=== PATIENT | male | born 1940 | race Caucasian/White ===

== ENCOUNTER 2019-08-13 04:47 | Inpatient (IN) ==
--- NOTE | 2019-07-18 08:49 | PAT Medication Instructions ---
Medication Instructions Date of Service July 18, 2019 Home Medications amlodipine 5 mg PO QAM 07/08/19 [History Confirmed 07/08/19] ascorbic acid (vitamin C) [Vitamin C] 500 mg PO BID 07/08/19 [History Confirmed 07/08/19] aspirin 81 mg PO QPM 07/08/19 [History Confirmed 07/08/19] carvedilol 6.25 mg PO BID 07/08/19 [History Confirmed 07/08/19] clopidogrel 75 mg PO QAM 07/08/19 [History Confirmed 07/08/19] levothyroxine 25 mcg PO QAM 07/08/19 [History Confirmed 07/08/19] lisinopril 5 mg PO QPM 07/08/19 [History Confirmed 07/08/19] auhskgov-vzx-nqnxa-vit K-lycop [Men's 50 Plus Multivitamin] 1 tab PO QAM omega 9-iuh-fpj-fish oil [Fish Oil] 1 cap PO QAM 07/08/19 [History Confirmed 07/08/19] simvastatin 20 mg PO PM 07/08/19 [History Confirmed 07/08/19] ASK your prescriber and surgeon clopidogrel 75 mg PO QAM (in order for spinal anesthesia, clopidogrel/plavix needs to be stopped 7 days before surgery. Please check if okay with doctor that prescribes this to you) STOP taking 2 weeks before surgery (or as soon as possible if surgery is within 2 weeks) omega 6-ytc-tgo-fish oil [Fish Oil] 1 cap PO QAM 07/08/19 [History Confirmed 07/08/19] DO NOT take the morning of surgery ascorbic acid (vitamin C) [Vitamin C] 500 mg PO BID 07/08/19 [History Confirmed 07/08/19] aozzvfzx-ysn-salvp-vit K-lycop [Men's 50 Plus Multivitamin] 1 tab PO QAM Take morning of surgery With a small sip of water, OTHERWISE NOTHING TO EAT OR DRINK AFTER MIDNIGHT: amlodipine 5 mg PO QAM 07/08/19 [History Confirmed 07/08/19] carvedilol 6.25 mg PO BID 07/08/19 [History Confirmed 07/08/19] levothyroxine 25 mcg PO QAM 07/08/19 [History Confirmed 07/08/19] Take evening before surgery carvedilol 6.25 mg PO BID 07/08/19 [History Confirmed 07/08/19] simvastatin 20 mg PO PM 07/08/19 [History Confirmed 07/08/19] Other Notes If you have any questions please call us at [phone] or [phone] or [phone] or [phone]
--- NOTE | 2019-07-21 08:58 | Anesthesiology Consultation ---
Date of Service July 21, 2019 Assessment & Plan (1) Encounter for pre-operative examination: - Awaiting review preop testing (labs, EKG, CXR). - Recent [facility] hospitalization for heart failure (SOB resolved with addition of diuretics). Patient seeing cardiology (Dr. Alves) and PCP (Dr. Dennis) prior to surgery- awaiting office visit notes. - ASA instructions: ASA okay to continue perioperatively per surgeon. Plavix instructions: patient made aware that in order for spinal anesthesia, Plavix needs to be held 7 days prior to surgery. Patient voiced understanding/will check if okay with prescriber/circular saw operator. Chart Review Chart Review: Patient seen in Pre Admission Testing Teaching & Discussion Pre-Anesthesia Teaching/Discussion Notes: Instructed NPO after midnight before surgery,except medications with 15 cc of water. Medication instructions provided according to the PAT guidelines. History Surgery Operation Date: 08/13/19 09:05 Proposed Procedures p Right Total Hip Replacement - Davonte Knutson MD Height/Weight Height: 5 ft 5.5 in Weight: 79.8 kg Allergies Allergy/AdvReac Type Severity Reaction Status Date / Time No Known Allergies Allergy Verified 07/08/19 13:47 Medications Home Medications Medication Instructions Recorded Confirmed Last Taken amlodipine 5 mg PO QAM PRN 07/08/19 07/08/19 Unknown ascorbic acid (vitamin C) [Vitamin 500 mg PO BID 07/08/19 07/08/19 Unknown C] aspirin 81 mg PO QPM 07/08/19 07/08/19 Unknown carvedilol 6.25 mg PO BID 07/08/19 07/08/19 Unknown clopidogrel 75 mg PO QAM 07/08/19 07/08/19 Unknown levothyroxine 25 mcg PO QAM 07/08/19 07/08/19 Unknown lisinopril 5 mg PO QPM 07/08/19 07/08/19 Unknown iqbgazrr-bvh-olgxb-vit K-lycop 1 tab PO QAM 07/08/19 07/08/19 Unknown [Men's 50 Plus Multivitamin] omega 0-mud-cjy-fish oil [Fish Oil] 1 cap PO QAM 07/08/19 07/08/19 Unknown simvastatin 20 mg PO PM 07/08/19 07/08/19 Unknown bumetanide 1 mg PO DAILY 07/21/19 07/21/19 Unknown spironolactone 25 mg PO DAILY 07/21/19 07/21/19 Unknown Past Medical History Medical History CAD (coronary artery disease) s/p CABG x 3 (2011), stent x 1 (2009) GERD (gastroesophageal reflux disease) controlled Hearing deficit Hyperlipidemia Hypertension Hypothyroidism Myocardial Infarction 2011 Osteoarthritis Skin cancer Exercise / Class Metabolic Activity III < 4 Walking/Shop/Light housework (no chest pain with daily activities) Past Family History Family History Uncle Family history of diabetes mellitus Past Surgical History Surgical History History of cardiac cath 2009= STENT X 1 History of carpal tunnel release RT/LEFT History of cataract surgery History of colonoscopy History of coronary artery bypass graft x3 (2011) History of esophagogastroduodenoscopy (EGD) History of tooth extraction S/P removal of metal from eye Past Anesthesia History No Hx of Anesthesia Complications and No Family Hx of Anesthesia Complications History of PONV No Hx of PONV and No Hx of Motion Sickness Social History Smoking Status: Former smoker tobacco type: cigarettes Do You Dip or Chew Tobacco: No Smoking End Date: QUIT AT AGE 28 Hx Alcohol Use: No Hx Substance Use: No substance use type: does not use Review of Systems Patient denies chest pain, shortness of breath, dyspnea on exertion, joint pain, reflux, cough, wheezing, palpitations. Physical Exam Vital Signs VITALS BP 112/66 P 66 TEMP 97.9 SP02 94%RA RESP 16 PHYSICAL Full neck and c-spine range of motion. Full TMJ range of motion. TMD 3 finger breaths Mallampati Score 2 Dentition: partials on upper/lower Lungs: clear throughout to auscultation Cardiac: regular rate and rhythm, no murmurs noted Spine: normal Carotid arteries: negative bruit Extremities: no edema Testing Echocardiogram Date: 11/07/18 EF 35%. Moderate global HK. Grade I DD. Thickened MV with mitral annular calc ification. Mild to moderate MR. Mild CO. RVSP 27mmhg. Mildly dilated ascending aorta (3.9cm). cLVH. Cardiac Catheterization Date: 02/04/18 Angiographically severe Left main and RCA occlusion. Patient grafts to LV branch of RCA and OM. EF 35%. Given present coronary anatomy patient should be managed medically as per the guidelines directed medical therapy/risk modification.
--- NOTE | 2019-07-21 10:30 | XRay Report ---
XR chest Pre-admission PA/Lat CLINICAL HISTORY: pat preoperative evaluation COMPARISON STUDY: No previous studies for comparison. FINDINGS: Prior median sternotomy. Tortuosity of the thoracic aorta. Scarring left perihilar region most likely postoperative. Lungs are considered clear. IMPRESSION: Chronic and postoperative change. No acute process. The above report was generated using voice recognition software. It may contain grammatical, syntax or spelling errors. Electronically signed by: Kadeem Caballero M.D. 07/21/2019 10:29 AM
[2019-07-21 10:38] LABS: BUN Creatinine Ratio 33.6 (10-20); Creatinine Clr Calc Pharmacy 35.6 ml/min; Est GFR (African American) 46.1; Est GFR (Non-African American) 39.8; Potassium 4.7 mmol/L (3.5-5.1)
[2019-07-21 10:40] LABS: Basophils # (auto) 0.03 K/uL (0-0.2); Basophils % (auto) 0.3 %; Eosinophils # (auto) 0.22 K/uL (0-0.5); Eosinophils % (auto) 2.3 %; Hematocrit (blood only) 45.3 % (42-52); Hemoglobin 15.7 g/dL (14.0-18.0); Immature Granulocytes # (auto) 0.02 K/uL (0.00-0.02); Immature Granulocytes % (auto) 0.2 %; Lymphocytes # (auto) 1.74 K/uL (1.2-3.4); Lymphocytes % (auto) 18.5 %; Mean Corpuscular Hemoglobin 32.8 pg (25-34); Mean Corpuscular Hgb Conc 34.7 g/dL (32-36); Mean Corpuscular Volume 94.8 fL (80-100); Mean Platelet Volume 10.9 fL (7.4-10.4); Monocytes # (auto) 1.21 K/uL (0.11-0.59); Monocytes % (auto) 12.9 %; Neutrophils # (auto) 6.17 K/uL (1.4-6.5); Neutrophils % (auto) 65.8 %; Platelet Count 227 K/uL (130-400); RDW Coefficient of Variation 14.2 % (11.5-14.5); RDW Standard Deviation 49.1 fL (36.4-46.3); Red Blood Count 4.78 M/uL (4.7-6.1); White Blood Count 9.39 K/uL (4.8-10.8)
[2019-07-21 10:51] LABS: Partial Thromboplastin Time 27.7 Seconds (21.0-31.0); Prothrombin Time 10.3 Seconds (9.0-12.0)
--- NOTE | 2019-08-06 14:06 | History and Physical Report ---
DATE OF ADMISSION: 08/13/2019 CHIEF COMPLAINT: Right hip pain and discomfort. HISTORY OF PRESENT ILLNESS: The patient is an 79-year-old gentleman who presents for surgical treatment of his right hip. He has got several year history of right hip pain and discomfort that has gradually just gotten worse over time. He describes buttock pain, groin pain and thigh pain. The more he walks, the more it hurts. It is affecting his quality of life. He did say he has been seen by his design lead and given okay, risk for surgery. Denies any numbness. Some mild back pain. Of note, the patient does have a history of coronary artery disease in the past and had bypass surgery done in [place] in 2011. Currently, asymptomatic. PAST MEDICAL HISTORY: 1. Coronary artery disease status post bypass graft in 2011. 2. Hypertension. 3. Elevated cholesterol. 4. Hypothyroidism. 5. Mild obesity. 6. BPH. PAST SURGICAL HISTORY: Include triple bypass surgery in [place] in 02/29/2012. ALLERGIES: None. CURRENT MEDICINES: Include: 1. Carvedilol 6.25 mg twice a day. 2. Plavix 75 mg a day. 3. Lisinopril 5 mg in the evening. 4. Amlodipine 5 mg in the morning. 5. Simvastatin 20 mg at nighttime. 6. Levothyroxine 25 mcg at night. 7. Multivitamin. 8. Fish oil. 9. Vitamin C. 10. Low dose aspirin. SOCIAL HISTORY: An 79-year-old male. He is . He is from [place]. He does not smoke. FAMILY HISTORY: Noncontributory. REVIEW OF SYSTEMS: Significant for this cardiac history, but no current symptoms. He is on Plavix. Denies any chest pain or shortness of breath. No history of DVT or PE. No known bleeding problems. PHYSICAL EXAMINATION: GENERAL: Shows a pleasant elderly male. Looks to be in reasonably good health. HEENT: Benign. NECK: Supple, no lymphadenopathy. LUNGS: Clear to auscultation. HEART: Regular rate and rhythm. ABDOMEN: Soft, nontender, nondistended. EXTREMITIES: Grossly neurovascularly intact except as follows: Examination of the right hip reveal patient walks with antalgic gait. He limps quite a bit on this right side. He has been 0.5 cm short on the right side compared to left. He has pain with any type of hip motion. He can internally rotate to about neutral. External rotation at 30 degrees. Negative straight leg raise. He is neurologically intact. X-RAYS: X-rays of the right hip were reviewed. Shows advanced right hip DJD. He has got complete loss of his joint space. He has cystic changes and flattening of the femoral head and cystic changes in the acetabulum. Bone density looks pretty good. ASSESSMENT: An 79-year-old male with some underlying cardiac disease with advanced right hip degenerative joint disease. He is significantly limited by his disease and he failed all conservative care. He would like to have his hip replaced. PLAN: We are going to take him to the operating room and do right total hip replacement. The risks and benefits of this procedure were explained to the patient including but not limited to DVT, PE, , infection, neurological injury, vascular injury, bleeding problem, pain, limited range of motion, stiffness, failure to relieve symptoms, incomplete relief of symptoms, need for further surgery in future, fracture, leg length inequality, nerve palsy, etc. The patient understands and desires to proceed. Informed consent was obtained. I did talk to him about holding his Plavix a week before surgery and taking the carvedilol the morning of surgery. He is planning to be discharged to home using [facility] home health program. His will assist in his care. STEPAN
[2019-08-13] MEDS ORDERED: METOCLOPRAMIDE HCL 10 MG TABLET PO SCH (06:00)
[2019-08-13] MEDS ORDERED: CEFAZOLIN 2000MG 2,000 MG/15 ML SYR IV SCH (06:00)
[2019-08-13] MEDS ORDERED: TRANEXAMIC ACID 1,000 MG **IV Pre-op IV SCH (06:00)
[2019-08-13] MEDS ORDERED: FAMOTIDINE 20 MG TAB PO SCH (06:00)
[2019-08-13] MEDS ORDERED: GABAPENTIN 300 MG CAP PO SCH (06:00)
[2019-08-13] MEDS ORDERED: SODIUM CHLORIDE 0.9% 1,000 ML IV SCH (06:00)
[2019-08-13] MEDS ORDERED: LR 60ML/HR IV SCH (06:00)
[2019-08-13] MEDS ORDERED: ACETAMINOPHEN 500 MG TAB PO SCH (06:00)
[2019-08-13] MEDS ORDERED: BUPIVACAINE 0.5 % 5 MG/1 ML PF 10ML VIAL ONE (06:31)
[2019-08-13] MEDS ORDERED: BACITRACIN INJ 50,000 UNIT VIAL ONE (06:39)
[2019-08-13] MEDS ORDERED: BUPIVACAINE 0.5 % 5 MG/1 ML MPF 30ML VIAL ONE (06:40)
[2019-08-13] MEDS ORDERED: EPINEPHrine INJ 1 MG/ML AMP ONE (06:40)
[2019-08-13] MEDS ORDERED: LIDOCAINE HCL 2% 2 ML VIAL/AMP(20MG/ML) INFIL ONE (06:43)
[2019-08-13] MEDS ORDERED: PROPOFOL IV EMULSION 10 MG/ML 20 ML VIAL IV ONE (06:43)
[2019-08-13] MEDS ORDERED: MIDAZOLAM HCL 1 MG/ML 2ML VIAL ONE (06:43)
[2019-08-13] MEDS ORDERED: MoRPHine SULFATE PF 1 MG/ML 10 ML AMP/VIAL ONE (06:43)
[2019-08-13] MEDS ORDERED: NALBUPHINE HCL INJ 10 MG/ML AMP IV PRN (06:47)
[2019-08-13] MEDS ORDERED: PROMETHAZINE HCL 6.25 MG in SODIUM CHLORIDE 0.9% 50 ML IV PRN (06:47)
[2019-08-13] MEDS ORDERED: DiphenhydrAMINE HCL 50 MG/ML VIAL IV PRN (06:47)
[2019-08-13] MEDS ORDERED: MoRPHine SULFATE 2 MG/ML CARP IV PRN (06:47)
[2019-08-13] MEDS ORDERED: MoRPHine SULFATE PF 1 MG/ML 10 ML AMP/VIAL INT SPINAL ONE (06:47)
[2019-08-13] MEDS ORDERED: NALOXONE HCL 0.4 MG/1 ML VIAL/CARP IV PRN ×2 (06:47→09:58)
[2019-08-13] MEDS ORDERED: LACTATED RINGER'S 500 ML IV PRN (06:47)
[2019-08-13] MEDS ORDERED: NALOXONE HCL 0.08 MG in SYRINGE 1.8 ML IV PRN (06:47)
[2019-08-13] MEDS ORDERED: NALOXONE HCL 1 MG in SODIUM CHLORIDE 0.9% 1000ML 1,000 ML IV PRN (06:47)
[2019-08-13] MEDS ORDERED: ONDANSETRON INJ 2 MG/ML 2 ML VIAL IV PRN (06:47)
[2019-08-13] MEDS ORDERED: ePHEDrine sulfate 50 MG/ML AMP IV PRN (06:47)
[2019-08-13] MEDS ORDERED: KETOROLAC 30 MG/ML VIAL IV PRN (06:47)
--- NOTE | 2019-08-13 06:57 | History & Physical Bridge Note ---
Date of Service August 13, 2019 History & Physical Bridge Note I have examined the patient, reviewed the History & Physical and in the interval since the performance of the History & Physical I have noted the following changes of clinical significance: no changes noted
[2019-08-13] MEDS ORDERED: NO NARCOTICS OR SEDATIVES SCH (07:00)
[2019-08-13] MEDS ORDERED: PHENYLEPHRINE 100MCG/ML 5ML SYR ONE (08:08)
[2019-08-13] MEDS ORDERED: ePHEDrine sulfate 50 MG/ML SYR ONE (08:08)
[2019-08-13] MEDS ORDERED: VASOPRESSIN 20 UNIT/ML VIAL ONE (08:08)
--- NOTE | 2019-08-13 08:35 | Post Operative Brief Note ---
PG Immediate Post Op with CF Date of Surgery August 13, 2019 Pre & Post Diagnosis Operation Date: 08/13/19 07:00 Pre-Op Diagnosis: Right Hip Advanced Degenerative Joint Disease Post-Op Diagnosis: Right Hip Advanced Degenerative Joint Disease + Chronic Hip Abductor Tear I identified the patient and participated in the time-out.: Yes Procedure Operation Date: 08/13/19 07:00 Actual Procedures p Right Total Hip Arthroplasty--Uncemented with Right Hip Abductor Repair(Right) - Davonte Knutson MD Surgeon Davonte Knutson MD Sap Abap Developer HARJINDER Calderon Estimated Blood Loss 250 Findings Consistent with Post-Op Diagnosis Fluids 1200 cc Specimens Specimen Description: A. Right Femoral Head Drains Martinez Catheter (A 16 Lao martinez catheter was inserted by QUEENIE Uribe, without difficulty, clear yellow urine obtained, output to be monitored by Anesthesia.) Anesthesia Type Spinal MAC Complications none Disposition Accompanied Patient To Recovery: Yes Disposition: Recovery Room
--- NOTE | 2019-08-13 08:57 | Operative Report ---
Post Operative Report Pre & Post Diagnosis Operation Date: 08/13/19 07:00 Pre-Op Diagnosis: Right Hip Advanced Degenerative Joint Disease Post-Op Diagnosis: Right Hip Advanced Degenerative Joint Disease + Chronic Hip Abductor Tear I identified the patient and participated in the time-out.: Yes Procedure Operation Date: 08/13/19 07:00 Actual Procedures p Right Total Hip Arthroplasty--Uncemented with Right Hip Abductor Repair(Right) - Davonte Knutson MD Surgeon Davonte Knutson MD Para Machine Operator Kvng, PAC Estimated Blood Loss 250 Findings Consistent with Post-Op Diagnosis Operative findings revealed advanced right hip DJD. He had grade 4 ubvm-cm-bxle disease of the femoral head and acetabulum. He had a chronic hip abductor tear. Particularly involving the anterior and superior hip abductors. Fluids 1200 cc Specimens Right femoral head sent for pathology. Drains None. Anesthesia Type Spinal MAC Complications none Disposition Disposition: Recovery Room Indications Patient is an 79-year-old gentleman is had a 7-year history of increasing right hip pain discomfort that gradually got worse over time despite conservative care. Really started to limit his activities and ability to maintain an active lifestyle. Got some underlying cardiac disease and was unable to be active as a result of his hip pain. He was medically optimized and desired to proceed with total hip arthroplasty. Description of Procedure Operative implants consisted of: 1. Biomet size 54 mm G7 acetabular shell. 2. Biomet size 54 mm outer diameter, 36 mm inner diameter highly cross-link polyethylene liner with a henderson placed inferior and posterior. 3. 6.5 cancellus acetabular screws 135 mm length and 125 mm length. 4. Hope hole eliminator. 5. Crowheart Corail size 9 KLA femoral stem. 6. +1.5/36 mm ceramic articular ball. Patient was taken to the operating room identified and placed on the operating table supine position. Contact there is probably padded. IV antibiotics were provided by the anesthesia team. Spinal anesthetic had been implemented holding area. Moulton catheter was placed in sterile fashion. Patient was then placed in the left lateral decubitus position. An axillary roll was placed. Stulberg hip positioner was used for positioning. Right hip and leg were then prepped and draped in usual sterile fashion. A posterior lateral approach of the right hip was then performed to a curvilinear incision centered over the greater trochanter but sharp lysis got through subcutaneous tissue down below the IT band gluteal fascia the IT band gluteal fascia then incised longitudinally in line with the skin incision. The underlying greater bursa was excised. The piriformis, external rotators, and posterior capsule were then released in the posterior aspect of the hip joint as a single layer. Great care was taken throughout the procedure to protect the sciatic nerve at all times. Hip was then internally rotated and dislocated. Femoral neck osteotomy cut was made with Final Cut about 5 mm above the lesser trochanter. Femoral head was removed and sent for pathology. The femur was retracted anteriorly. Attention drawn the acetabulum. The acetabular labrum was excised. The pulmonary fat was excised. Sequential reaming the acetabulum was then performed begin with size 45 and progressing up to 53. A 54 mm Biomet G7 acetabular shell was then placed in about 40 degrees lateral opening and 20 degrees of anteversion. It was fixed with two 6.5 cancellus acetabular screws. Trial liner was placed. Attention drawn the femur. New per the proximal femurs and with a cookie-cutter followed by canal finder. Then broached begin the size 8 and probably progressed to 9. We get pretty good fit it in 9. Calcar reamer was used smooth off the calcar. Then trialed the hip. The +5 articular ball was stable but just stiff particular in extension. We therefore used a +1.5 articular ball. Seem to re-create soft tissue tension appropriately. It was fully stable in full extension and external rotation and flexion to 90 degrees internal rotation to over 50 degrees. I did elect to place a line entered with a henderson inferior and posterior to maximize stability in flexion. All trial implants were removed. An apex hole eliminator was placed but highly cross-link polyethylene liner with a henderson placed inferior and posterior was then impacted in position. A Crowheart Corail size 9 KLA femoral stem was impacted in position. +1.5/36 mm articular ball was placed. Hip was located once again found to be stable. Attention turned toward closing. Patient had chronic avulsion of his hip abductors particularly anterior and posteriorly. I elected to repair these. I used the cautery stuff up the lateral and anterior aspect of the greater trochanter. A single Biomet juggernaut anchor was placed with a 2 sutures in it. I placed a 1 suture through the anterior hip abductors 1 through the superior. I then used a #2 Tycron sutures to repair some additional soft tissue defect. Attention then drawn toward closing. The IT band was then closed with #1 PDS suture running fashion the subcutaneous tissues closed 2 layers with a deep layer #1 Vicryl suture in a buried interrupted fashion the subcutaneous tissues with 2 Dexon suture in a buried interrupted fashion the skin was closed skin yolanda. Leg was then cleaned dried and sterile dressing was Xeroform, 4 x 4's, ABD pad, foam tape was applied. Patient transferred to the recovery room in stable condition. Patient tolerated procedure well and there were no complications. I attest to the content of the Intraoperative Record and any orders documented therein. Any exceptions are noted below.
--- NOTE | 2019-08-13 09:11 | XRay Report ---
XR hip 1V RT w pelvis CLINICAL HISTORY: Postoperative examination OSTEOARTHRITIS COMPARISON: Pelvis x-ray dated 06/16/2019 DISCUSSION: There are postsurgical changes of a total right hip arthroplasty. The acetabular and femo ral components appear well seated. Overlying skin yolanda are evident. There is gas present within th e soft tissues consistent with prior surgery. There is no dislocation. IMPRESSION: Postsurgical changes of a total right hip arthroplasty. No complicating features identifi ed. Electronically signed by: Lb Moncada M.D. 08/13/2019 9:09 AM
--- NOTE | 2019-08-13 09:29 | Anesthesiology Progress Note ---
Date of Service August 13, 2019 Anesthesia Post Procedure Vital Signs Vital Signs: Temp Pulse Pulse Resp BP Pulse Ox 08/13/19 09:25 36.3 C L 76 20 112/69 98 08/13/19 09:15 81 18 113/71 99 08/13/19 09:05 73 18 117/64 98 08/13/19 08:55 74 17 111/59 L 99 08/13/19 08:45 69 14 113/64 100 08/13/19 08:35 36.5 C 56 L 12 125/70 98 08/13/19 05:38 36.4 C L 73 20 108/61 95 Pain Intensity Right Hip: Pain Intensity: 0 Transfer of Care Handoff Completed per policy Notes Mental Status: alert / awake / arousable Patient Amnestic to Procedure: Yes Nausea / Vomiting: adequately controlled Pain: adequately controlled Airway Patency, RR, SpO2: stable & adequate BP & HR: stable & adequate Hydration State: stable & adequate Neuraxial Anesthesia: was administered and sensory block is resolving Anesthetic Complications: no major complications apparent
[2019-08-13] MEDS ORDERED: [UNRECOGNIZED DRUG - OTHER] PO SCH (09:58)
[2019-08-13] MEDS ORDERED: NO NSAIDS SCH (09:58)
[2019-08-13] MEDS ORDERED: TAMSULOSIN HCL 0.4 MG CAP PO PRN (09:58)
[2019-08-13] MEDS ORDERED: SODIUM CHLORIDE 0.9% 1000ML 1,000 ML IV SCH (09:58)
[2019-08-13] MEDS ORDERED: MAGNESIUM HYDROXIDE SUSP 30 ML UDC PO PRN (09:58)
[2019-08-13] MEDS ORDERED: AMLODIPINE BESYLATE 5 MG TAB PO PRN (09:58)
[2019-08-13] MEDS ORDERED: BUMETANIDE 1 MG TAB PO SCH (09:58)
[2019-08-13] MEDS ORDERED: METOCLOPRAMIDE HCL INJ 5 MG/ML 2 ML VIAL IV PRN (09:58)
[2019-08-13] MEDS ORDERED: bisacodyL 10 MG SUPP PR PRN (09:58)
[2019-08-13] MEDS ORDERED: ALUMINUM/MAGNESIUM SUSP 30 ML UDC PO PRN (09:58)
[2019-08-13] MEDS: SODIUM CHLORIDE 0.9% 1000ML 1,000 ML IV SCH ×2 (10:20→15:05)
[2019-08-13] MEDS: carvediloL 6.25 MG TAB PO SCH ×2 (10:59→21:09)
[2019-08-13] MEDS: MULTIVITAMIN TAB PO SCH (11:00)
[2019-08-13] MEDS: OMEGA-3 (PURIFIED FISH OIL) 1 GM CAP PO SCH (11:01)
[2019-08-13] MEDS: DOCUSATE SODIUM 100 MG CAP PO SCH ×2 (11:02→21:09)
[2019-08-13] MEDS: ASCORBIC ACID 500 MG TAB PO SCH ×2 (11:02→21:09)
[2019-08-13] MEDS: CLOPIDOGREL BISULFATE 75 MG TAB PO SCH (11:09)
[2019-08-13] MEDS: ACETAMINOPHEN 500 MG TAB PO SCH ×2 (13:29→21:10)
[2019-08-13] MEDS: CEFAZOLIN 1000MG 1,000 MG/7.5 ML SYR IV SCH ×2 (14:23→22:21)
--- NOTE | 2019-08-13 14:48 | Hospitalist Consultation ---
Date of Consultation August 13, 2019 Assessment & Plan (1) Arthritis of right hip: S/p right JHOAN with Dr. Knutson on 08/13 with EBL of 250 mL, but no intra- operative complications. - Post-operative pain management and care per primary team (2) Chronic systolic (congestive) heart failure: Recent admission in [place] for acute systolic CHF due to dietary intake. EF on recent stress test was 25%. - Stopped all IV fluids due to concern for CHF - Continue home meds - Presently appears euvolemic. (3) CAD (coronary artery disease): S/p 3vCABG in 2011. - Continue ASA, Plavix, beta-fidencio, statin (4) Hypertension: BP presently at 115/75. - Continue home meds - Coreg, lisinopril - Of note, the patient is presently NOT taking his amlodipine as his BP has b een running normal just on the above two. (5) Hypothyroidism: Followed by his PCP. Last TSH was normal. - Continue home levothyroxine 25 mcg (6) DVT prophylaxis: SCDs - Defer chemoprophylaxis to primary team as he is on ASA & Plavix for his CAD History of Present Illness Attending Physician: Davonte Knutson MD History of Present Illness 79yo w/ hx of ischemic cardiomyopathy with an EF of ~25-35% who presents as a post-operative consult after a right hip replacement with Dr. Knutson. No major intra-operative events. He is doing very well and has no pain today. He was recently hospitalized in [place] for a CHF exacerbation that was thought to be due to salt intake. He was on Bumex for about 5 days and then kept on spironolactone. However the spironolactone increased his potassium and Cr and made him hyponatremic. This was stopped by his PCP with return to normal function. He reports that his weight has actually been dropping slowly even off his diuretics. Overall, he denies any swelling in the legs and any post- operative shortness of breath. Allergies Allergy/AdvReac Type Severity Reaction Status Date / Time No Known Allergies Allergy Verified 08/13/19 05:37 Home Medications Home Medications Medication Instructions Recorded Confirmed Type amlodipine 5 mg PO QAM PRN 07/08/19 08/13/19 History ascorbic acid (vitamin C) [Vitamin 500 mg PO BID 07/08/19 08/13/19 History C] aspirin 81 mg PO QPM 07/08/19 08/13/19 History carvedilol 6.25 mg PO BID 07/08/19 08/13/19 History clopidogrel 75 mg PO QAM 07/08/19 08/13/19 History levothyroxine 25 mcg PO QAM 07/08/19 08/13/19 History lisinopril 5 mg PO QPM 07/08/19 08/13/19 History varivgvj-zsb-enwqu-vit K-lycop 1 tab PO QAM 07/08/19 08/13/19 History [Men's 50 Plus Multivitamin] omega 7-vjy-bnx-fish oil [Fish Oil] 1 cap PO QAM 07/08/19 08/13/19 History simvastatin 20 mg PO PM 07/08/19 08/13/19 History bumetanide 1 mg PO DAILY 07/21/19 08/13/19 History Patient History Medical History CAD (coronary artery disease) s/p CABG x 3 (2011), stent x 1 (2009) GERD (gastroesophageal reflux disease) controlled Hearing deficit Hyperlipidemia Hypertension Hypothyroidism Myocardial Infarction 2011 Osteoarthritis Skin cancer Surgical History History of cardiac cath 2009= STENT X 1 History of carpal tunnel release RT/LEFT History of cataract surgery History of colonoscopy History of coronary artery bypass graft x3 (2011) History of esophagogastroduodenoscopy (EGD) History of tooth extraction S/P removal of metal from eye Family History Uncle Family history of diabetes mellitus Social History Preferred Language: Norwegian Communication Ability: Effective 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 Required: No Beliefs That Will Affect Care: None marital status: Current Living Situation: Spouse Other Information That Helps Us Care for You: No Feels Safe at Home: Yes Safety Concerns: Feels Safe At This Time Smoking Status: Former smoker Tobacco Type: cigarettes ; Do You Dip or Chew Tobacco: No ; Smoking End Date: QUIT AT AGE 28 ; Second Hand Exposure: No ; Tobacco Cessation Education Requested by Patient: No Hx Alcohol Use: No Hx Substance Use: No Review of Systems Review of Systems: All systems reviewed & are unremarkable except as noted in HPI & below Physical Exam Constitutional: WD/WN, vitals as above Eyes: EOM intact bilaterally; no conjunctival abnormality ENMT: external ear and nose normal, oropharynx normal Neck: trachea midline, no thyromegaly normal visual inspection Respiratory: normal respiratory effort, lungs clear to auscultation no respiratory distress Cardiovascular: RRR, no murmur, no edema Gastrointestinal (Abdomen): Inspection/Auscultation: abdomen normal to inspection; abdomen not distended Musculoskeletal: no cyanosis or clubbing, extremities motor strength 5/5 Extremities: + limited ROM of extremities (Right hip bandage clean/dry/intact) Skin: no rashes, warm and dry Neurologic: moves all extremities and awake Psychiatric: Orientation: alert, oriented to person and cooperative Results & Data Vital Signs (Past 12 Hours) Vital Signs Temp Pulse Pulse Pulse Resp BP Pulse Ox 08/13/19 14:00 14 98 08/13/19 13:31 36.4 C L 115/73 08/13/19 13:20 76 16 100/65 99 08/13/19 11:44 60 16 121/80 98 08/13/19 11:06 68 14 119/78 99 08/13/19 10:15 63 14 122/78 99 08/13/19 09:45 36.3 C L 71 16 120/70 98 08/13/19 09:30 74 16 107/67 97 08/13/19 09:25 36.3 C L 76 20 112/69 98 08/13/19 09:15 81 18 113/71 99 08/13/19 09:05 73 18 117/64 98 08/13/19 08:55 74 17 111/59 L 99 08/13/19 08:45 69 14 113/64 100 08/13/19 08:35 36.5 C 56 L 12 125/70 98 08/13/19 05:38 36.4 C L 73 20 108/61 95 PG Care Time/CCT Total # of Minutes Spent Total Time Spent with Patient: Total time spent is greater than 50% in coordination of care (as documented) at patient's floor/unit and/or counseling patient:
[2019-08-13] MEDS: FERROUS GLUCONATE 324 MG TAB PO SCH (17:12)
[2019-08-13] MEDS: SENNA 8.6 MG TAB PO SCH (21:09)
[2019-08-13] MEDS: lisinopriL 5 MG TAB PO SCH (21:09)
[2019-08-13] MEDS: ASPIRIN 81 MG ECTAB PO SCH (21:09)
[2019-08-13] MEDS: SIMVASTATIN 20 MG TAB PO SCH (21:09)
[2019-08-14] MEDS ORDERED: TRAMADOL HCL 50 MG TABLET PO PRN (00:50)
[2019-08-14] MEDS ORDERED: DC INTRASPINAL MORPHINE ONE (00:50)
[2019-08-14] MEDS ORDERED: ONDANSETRON INJ 2 MG/ML 2 ML VIAL IV PRN (00:50)
[2019-08-14] MEDS ORDERED: HYDROmorphone INJ 0.5 MG/0.5 ML SYR IV PRN (00:50)
[2019-08-14] MEDS: ACETAMINOPHEN 500 MG TAB PO SCH ×3 (05:37→21:13)
[2019-08-14] MEDS: LEVOTHYROXINE SODIUM 25 MCG TABLET PO SCH (05:37)
[2019-08-14 06:05] LABS: Basophils # (auto) 0.02 K/uL (0-0.2); Basophils % (auto) 0.2 %; Eosinophils # (auto) 0.08 K/uL (0-0.5); Eosinophils % (auto) 0.7 %; Hematocrit (blood only) 35.2 % (42-52); Immature Granulocytes # (auto) 0.02 K/uL (0.00-0.02); Immature Granulocytes % (auto) 0.2 %; Lymphocytes % (auto) 11.1 %; Mean Corpuscular Hgb Conc 34.1 g/dL (32-36); Mean Corpuscular Volume 93.9 fL (80-100); Mean Platelet Volume 9.8 fL (7.4-10.4); Monocytes # (auto) 1.32 K/uL (0.11-0.59); Monocytes % (auto) 12.2 %; Neutrophils # (auto) 8.19 K/uL (1.4-6.5); Neutrophils % (auto) 75.6 %; Platelet Count 135 K/uL (130-400); RDW Coefficient of Variation 13.5 % (11.5-14.5); RDW Standard Deviation 46.1 fL (36.4-46.3); Red Blood Count 3.75 M/uL (4.7-6.1); White Blood Count 10.83 K/uL (4.8-10.8)
[2019-08-14 06:40] LABS: BUN Creatinine Ratio 25.2 (10-20); Calcium 8.7 mg/dl (8.5-10.1); Creatinine Clr Calc Pharmacy 36.2 ml/min; Est GFR (African American) 48.3; Est GFR (Non-African American) 41.7; Potassium 4.2 mmol/L (3.5-5.1)
--- NOTE | 2019-08-14 07:14 | Orthopedic Progress Note ---
Date of Service August 14, 2019 Assessment & Plan (1) Status post total hip replacement, right: He is doing well pain is controlled. Continue physical therapy weightbearing as tolerated. Total hip precautions. Continue DVT prophylaxis with teds SCDs aspirin and is on Plavix as well. He is being followed by the hospitalist service as well. He was seen and examined by Dr. Knutson today. Subjective 79-year-old male postop day 1 from right total hip replacement. He is not having any pain. He has no chest pain or shortness of breath. No other complaints. Physical Exam Physical Exam: He is alert and oriented. Good alignment to his legs. He is able dorsiflex plantarflex appropriately. He is neurovascularly intact. Results & Data Vital Signs (Past 12 Hours) Vital Signs Temp Pulse Resp BP Pulse Ox 08/14/19 03:50 36.3 C L 67 16 94/55 L 95 08/14/19 00:05 16 95 08/14/19 00:00 16 97 08/13/19 23:10 36.5 C 73 16 96/58 L 97 08/13/19 23:00 16 96 08/13/19 22:10 16 94 08/13/19 21:07 81 16 104/62 96 08/13/19 21:03 16 96 08/13/19 20:14 18 98 08/13/19 19:20 20 96 PG Care Time/CCT Total # of Minutes Spent Total Time Spent with Patient: Total time spent is greater than 50% in coordination of care (as documented) at patient's floor/unit and/or counseling patient:
[2019-08-14] MEDS: MULTIVITAMIN TAB PO SCH (08:38)
[2019-08-14] MEDS: DOCUSATE SODIUM 100 MG CAP PO SCH ×2 (08:38→21:12)
[2019-08-14] MEDS: carvediloL 6.25 MG TAB PO SCH ×2 (08:38→21:12)
[2019-08-14] MEDS: OMEGA-3 (PURIFIED FISH OIL) 1 GM CAP PO SCH (08:39)
[2019-08-14] MEDS: ASCORBIC ACID 500 MG TAB PO SCH ×2 (08:39→21:13)
[2019-08-14] MEDS: FERROUS GLUCONATE 324 MG TAB PO SCH ×2 (08:39→16:43)
[2019-08-14] MEDS: CLOPIDOGREL BISULFATE 75 MG TAB PO SCH (11:26)
--- NOTE | 2019-08-14 16:52 | Hospitalist Progress Note ---
Date of Service August 14, 2019 Assessment & Plan (1) Arthritis of right hip: S/p right JHOAN with Dr. Knutson on 08/13 with EBL of 250 mL, but no intra- operative complications. - Post-operative pain management and care per primary team (2) Chronic systolic (congestive) heart failure: Recent admission in [place] for acute systolic CHF due to dietary intake. EF on recent stress test was 25%. - Stopped all IV fluids due to concern for CHF - Continue home meds - Presently appears euvolemic. No shortness of breath today. No swelling. (3) CAD (coronary artery disease): S/p 3vCABG in 2011. - Continue ASA, Plavix, beta-fidencio, statin (4) Hypertension: BP presently at 115/75. - Continue home meds - Coreg, lisinopril - Of note, the patient is presently NOT taking his amlodipine as his BP has been running normal just on the above two. (5) Hypothyroidism: Followed by his PCP. Last TSH was normal. - Continue home levothyroxine 25 mcg (6) DVT prophylaxis: SCDs - Defer chemoprophylaxis to primary team as he is on ASA & Plavix for his CAD Given medical stability, Hospital Medicine team will sign off. Please re-consult with any questions or concerns. Thank you for letting us assist in the care of this patient! Subjective Doing great. Very little hip pain. Up and walking around. No major concerns today. Reports no fevers/chills, chest pain, shortness of breath, abdominal pain, nausea, or vomiting. Physical Exam Constitutional: WD/WN, vitals as above Eyes: EOM intact bilaterally; no conjunctival abnormality ENMT: external ear and nose normal, oropharynx normal Neck: trachea midline, no thyromegaly normal visual inspection Respiratory: normal respiratory effort, lungs clear to auscultation no respiratory distress Cardiovascular: RRR, no murmur, no edema Gastrointestinal (Abdomen): Inspection/Auscultation: abdomen normal to inspection; abdomen not distended Musculoskeletal: no cyanosis or clubbing, extremities motor strength 5/5 Extremities: + limited ROM of extremities (Right hip bandage clean/dry/intact) Skin: no rashes, warm and dry Neurologic: moves all extremities and awake Psychiatric: Orientation: alert, oriented to person and cooperative Results & Data Vital Signs (Past 12 Hours) Vital Signs Temp Pulse Pulse Resp BP BP Pulse Ox 08/14/19 16:36 80 08/14/19 15:48 36.6 C 99 H 18 109/67 97 08/14/19 11:39 76 15 94/59 L 97 08/14/19 07:10 36.5 C 66 16 89/46 L 82/50 L 94 PG Care Time/CCT Total # of Minutes Spent Total Time Spent with Patient: Total time spent is greater than 50% in coordination of care (as documented) at patient's floor/unit and/or counseling patient:
[2019-08-14] MEDS: SENNA 8.6 MG TAB PO SCH (21:12)
[2019-08-14] MEDS: SIMVASTATIN 20 MG TAB PO SCH (21:12)
[2019-08-14] MEDS: ASPIRIN 81 MG ECTAB PO SCH (21:13)
[2019-08-14] MEDS: lisinopriL 5 MG TAB PO SCH (21:13)
[2019-08-15] MEDS: ACETAMINOPHEN 500 MG TAB PO SCH (05:30)
[2019-08-15] MEDS: LEVOTHYROXINE SODIUM 25 MCG TABLET PO SCH (05:30)
[2019-08-15 06:04] LABS: Hematocrit (blood only) 31.9 % (42-52); Hemoglobin 11.2 g/dL (14.0-18.0); Mean Corpuscular Hemoglobin 32.3 pg (25-34); Mean Corpuscular Hgb Conc 35.1 g/dL (32-36); Mean Corpuscular Volume 91.9 fL (80-100); Mean Platelet Volume 9.9 fL (7.4-10.4); Platelet Count 124 K/uL (130-400); RDW Coefficient of Variation 13.9 % (11.5-14.5); RDW Standard Deviation 46.3 fL (36.4-46.3); Red Blood Count 3.47 M/uL (4.7-6.1); White Blood Count 12.15 K/uL (4.8-10.8)
[2019-08-15 06:35] LABS: BUN Creatinine Ratio 24.3 (10-20); Calcium 8.6 mg/dl (8.5-10.1); Creatinine Clr Calc Pharmacy 40.7 ml/min; Est GFR (African American) 55.7; Potassium 4.2 mmol/L (3.5-5.1)
--- NOTE | 2019-08-15 08:15 | Progress Note ---
DATE: 08/15/2019 SUBJECTIVE: An 79-year-old gentleman postop day 2 from a right total hip replacement. He is doing well. Therapy has gone well. No chest pain or shortness of breath. Not feeling dizzy or lightheaded. OBJECTIVE: VITAL SIGNS: Temperature 36.7. Vital signs stable. GENERAL: Pleasant elderly male. He is lying in bed, resting comfortably. EXTREMITIES: Examination of the right hip reveals the incision to be clean, dry and intact. Leg lengths were equal. Thigh is soft and supple. Hip is located. He is neurologically intact. LABORATORY DATA: Hemoglobin 11.2. Hematocrit 31.9. Electrolytes are stable. Her creatinine is actually improved at 1.37. ASSESSMENT: An 79-year-old gentleman postop day 2 from a right hip replacement, doing well. Pain is controlled. Hip is located. He is neurologically intact. PLAN: 1. DVT prophylaxis including thigh-high TEDs, SCDs, and he is back on his baby aspirin and his Plavix and we are going to just stick to that. 2. PT/OT. Weight bear as tolerated. Right total hip protocol. 3. Pain control, doing well with current pain regimen. 4. Disposition: Plan to discharge to home with some home health likely later today.
[2019-08-15] MEDS: FERROUS GLUCONATE 324 MG TAB PO SCH (09:08)
[2019-08-15] MEDS: MULTIVITAMIN TAB PO SCH (09:08)
[2019-08-15] MEDS: DOCUSATE SODIUM 100 MG CAP PO SCH (09:08)
[2019-08-15] MEDS: ASCORBIC ACID 500 MG TAB PO SCH (09:08)
[2019-08-15] MEDS: OMEGA-3 (PURIFIED FISH OIL) 1 GM CAP PO SCH (09:08)
[2019-08-15] MEDS: CLOPIDOGREL BISULFATE 75 MG TAB PO SCH (09:08)
[2019-08-15] MEDS: carvediloL 6.25 MG TAB PO SCH (09:09)
--- NOTE | 2019-08-18 23:01 | Discharge Summary ---
ADMITTING PHYSICIAN AND SURGEON: Dr. Davonte Knutson. ADMITTING DIAGNOSIS: Right hip degenerative joint disease. SURGERY PERFORMED: Right total hip arthroplasty. SECONDARY DIAGNOSES: Coronary artery disease, hypertension, elevated cholesterol, hypothyroidism, mild obesity, benign prostatic hypertrophy. CONSULTS: Dr. Garnett, postoperative medical management. HISTORY AND PHYSICAL EXAMINATION: Well documented in the patient's chart. HOSPITAL COURSE: The patient was admitted on 08/13/2019, underwent total hip arthroplasty, tolerated the procedure well. There were no complications. He was transferred to the PACU postoperatively and later to the orthopedic floor for further care. He was given Ancef for antibiotic prophylaxis, DEE DEE stockings, SCDs and was on Plavix and aspirin as well for DVT prophylaxis. Hemoglobin, hematocrit and vital signs were monitored during his hospital stay and remained stable, did not require any blood transfusions. He was followed by the hospitalist service throughout his stay. There were no complications. By postoperative day 2, he was tolerating a regular diet, pain was controlled with oral pain medicine. He was participating in physical therapy. By postop day 2, he was discharged home, set up with home health services. He was given printed discharge instructions including new prescriptions for extra strength Tylenol and tramadol. Continue his home medications, continue physical therapy, weightbearing as tolerated. Total hip precautions. He should avoid active hip abduction for the next 6 weeks postoperatively. Follow up approximately 2 weeks postop or sooner if there are any problems or concerns.
== END 2019-08-15 11:09 | disposition home health service (06) | DRG 470 ==
LOC: ASU 04:47 → 3E 08:40

== ENCOUNTER 2022-07-31 05:42 | Inpatient (IN) ==
--- NOTE | 2022-07-21 15:53 | Anesthesiology Consultation ---
Date of Service July 21, 2022 Assessment & Plan (1) Encounter for pre-operative examination: Chart Review Chart Review: Acceptable Risk for Surgery and Patient NOT seen in Pre Admission Testing Pt initially scheduled for procedure 07/10/22- case cancelled secondary to equipment failure. Pt rescheduled to 07/31/22 -COVID screening: Per PAT nursing assessment on 07/21/22. No known COVID-19 positive contacts or current COVID-19 related symptoms. Travel screen negative. Patient vaccinated for Covid. At surgeon discretion if preop Covid testing being done. -Cardiology addendum (07/05/22): "Discussed Mr. Aguilar's echo with both him, Dr. Marsh and Dr. Velasco. Dr. Velasco's assessment is that Chris'srisk for cardiac complication perioperatively is high - 5-10%. This was communicated to Dr. Marsh who is comfortable proceeding with the PVAR. The was also communicated and explained to Mr. Aguilar and he elects to proceed. He kaci nues to have stable angina with heavier exertion but can get up a flight of stairs without difficulty." Cardiology office visit (06/14/22): "Coronary artery disease status postcoronary bypass grafting.. Severe ischemic cardiomyopathy with ejection fraction in the range of 30% with LAD wall motion abnormalities (September,).. Nuclear stress test 08/2019 in [place] with anterior scar mild radha- infarct ischemia.. 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 Scheduled for PVAR on July 10. His angina is stable. He is able to ascend a flight of stairs without any symptoms. EKG was performed in the office today which showed sinus rhythm with firstdegree AV block with some PVCs. He appears euvolemic today. He does occasionally have to take his furosemide when he puts on a few pounds or is feeling more short of breath. This happens a couple times a month. He has not had an echocardiogram in about 2 years and I will have him repeat one before his surgery. He is tolerating high-dose Entresto.Beyond the echocardiogram, I do not think he needs further testing prior to his procedure. We discussed that he is at a moderate risk for cardiac complication for this procedure. Anesthesia will need to be judicious with fluids to avoid fluid overloading him.Despite his cardiac comorbidities, he is really active and functional 82yearold and so intervening on his enlarging AAA is necessary." History Surgery Operation Date: 07/31/22 08:00 Proposed Procedures p Percutaneous Endovascular Abdominal Aortic Aneurysm Repair - Braxton Marsh MD Height/Weight Height: 5 ft 5 in Weight: 69.944 kg Allergies Allergy/AdvReac Type Severity Reaction Status Date / Time ezetimibe [From Zetia] AdvReac Mild Numbness Verified 07/21/22 08:03 Medications Home Medications Medication Instructions Recorded Confirmed Last Taken amlodipine 5 mg tablet 2.5 mg PO QAM 07/08/19 07/21/22 07/10/22 04:30 ascorbic acid (vitamin C) 500 mg 500 mg PO BID 07/08/19 07/21/22 07/08/22 21:00 tablet (Vitamin C) aspirin 81 mg tablet,delayed 81 mg PO QPM 07/08/19 07/21/22 07/09/22 17:00 release carvedilol 6.25 mg tablet 3.125 mg PO BID 07/08/19 07/21/22 07/10/22 04:30 clopidogrel 75 mg tablet 75 mg PO QAM 07/08/19 07/21/22 07/10/22 04:30 rlvwtghglqlp-aby-linmz acid-vit 1 tab PO QAM 07/08/19 07/21/22 07/07/22 09:00 K-lycop 400 mcg-20 mcg-370 mcg tablet (Men's 50 Plus Multivitamin) omega 8-kvh-ont-fish oil 1,000 mg 1 cap PO QAM 07/08/19 07/21/22 06/26/22 09:00 (120 mg-180 mg) capsule (Fish Oil) simvastatin 20 mg tablet 20 mg PO PM 07/08/19 07/21/22 07/09/22 17:00 cyanocobalamin (vitamin B-12) 1,000 mcg PO UD 06/23/22 07/21/22 07/07/22 08:00 1,000 mcg tablet (Vitamin B-12) furosemide 20 mg tablet 20 mg PO QAM PRN water retention 06/23/22 07/21/22 Unknown sacubitril 97 mg-valsartan 103 mg 1 tab PO BID 06/23/22 07/21/22 07/10/22 04:30 tablet (Entresto) zinc 50 mg tablet 50 mg PO QAM 06/23/22 07/21/22 07/07/22 09:00 levothyroxine 25 mcg tablet 25 mcg PO QAM 06/27/22 07/21/22 07/10/22 01:30 (Euthyrox) cholecalciferol (vitamin D3) 25 25 mcg PO PM 07/21/22 07/21/22 Unknown mcg (1,000 unit) tablet (Vitamin D3) ferrous sulfate 134 mg (27 mg 134 mg PO 5XWK 07/21/22 07/21/22 Unknown iron) tablet Past Medical History Medical History Aortic aneurysm CAD (coronary artery disease) s/p CABG x 3 (2011), stent x 1 (2009) Chronic systolic (congestive) heart failure GERD (gastroesophageal reflux disease) controlled Hearing deficit History of anesthesia reaction was told by staff after CABG surgery, kept trying to pull at ET tube in recovery. They had to put hands in restraints, resulted in carpal tunnel syndrome afterward per pt report Hyperlipidemia Hypertension Hypothyroidism Myocardial Infarction 2011- blockage found during cath- denies "CO" Skin cancer BCC- excision Slow to wake up after anesthesia Happened after one procedure Past Family History Family History Uncle Family history of diabetes mellitus Past Surgical History Surgical History History of cardiac cath Stent (2009), most recent cath (2017- no stents) History of carpal tunnel release RT/LEFT History of cataract surgery History of colonoscopy History of coronary artery bypass graft x3 (2011) History of esophagogastroduodenoscopy (EGD) History of tooth extraction Hx of angioplasty 2018 S/P removal of metal from eye Status post total hip replacement, right 2019 Social History Smoking Status: Former smoker tobacco type: cigarettes Do You Dip or Chew Tobacco: No Smoking End Date: age 28 Hx Alcohol Use: No Hx Substance Use: No substance use type: does not use Lab Results Anesthesia Preop Results Results Anesthesia Widget: WBC 6.53 K/ul (4.8-10.8) 06/27/22 Hgb 14.7 g/dl (14.0-18.0) 06/27/22 Hct 42.6 % (40.1-51.0) 06/27/22 Plt 184 K/uL (130-400) 06/27/22 Na 137 mmol/L (136-145) 07/10/22 K 3.7 mmol/L (3.5-5.1) 07/10/22 Cl 103 mmol/L (98-107) 07/10/22 CO2 29 mmol/L (21-32) 07/10/22 BUN 28 mg/dl (6-23) H 07/10/22 Creat 1.07 mg/dl (0.6-1.4) 07/10/22 Glucose Level 100 mg/dl (70-99(Fasting)) H 07/10/22 PT 11.0 Seconds (9.0-12.0) 06/27/22 PTT 29.9 Seconds (21.0-31.0) 06/27/22 INR 1.0 (0.9-1.1) 06/27/22 SARS-CoV-2, RNA, NAAT NEGATIVE (NEGATIVE) 07/10/22 Blood Type O Negative 07/10/22 Antibody Screen NEGATIVE 07/10/22 Testing Electrocardiogram Date: 06/14/22 Sinus rhythm with first-degree AV block with occasional PVCs at 60 bpm. Anterior septal infarct, age undetermined. ST/T wave abnormality, consider lateral ischemia. EKG was performed at preop cardiac evaluation* Echocardiogram Date: 06/30/22 EF 30-35%. The inferior septum, anterior septum, and inferior torre are thinned and akinetic. The apex is dyskinetic. No LVH. Grade 1 diastolic dysfunction. Moderate LVD. RVD. Severe LAD. Mild to moderate MR. Mild to moderate TR. PASP 25 mmHg. Dilated ascending aorta (4.2 cm). Compared to September 2019, "no change in the overall LVEF but the inferior wall is akinetic now" per report. Stress Test Date: 08/04/19 There is a resting perfusion abnormality in the anterior, septal and apical wall, consistent with prior infarction in the LAD coronary artery distribution. There appears to be mild residual visible myocardium in the distribution of the infarction. The left ventricle is abnormally dilated in size. LVEF 25%. Probability of ischemia being present is moderate. Prognostically, this is a moderate risk study for acute ischemic events. Cardiac Catheterization Date: 02/04/18 Angiographically severe left main and RCA occlusion. Patent grafts to LV branch of RCA and OM. Plan: Given present coronary anatomy patient should be medically managed as per the guidelines directed medical therapy.. Aggressive risk factor modification should be maintained and close clinical follow-up should be done. Other Testing Chest CTA (04/27/22) Lungs and pleura: Atelectasis versus scarring is seen in the dependent portions of the lungs. Tortuosity and ectasia of the descending aorta measuring up to 30 mm in diameter. There is a small intimal flap, likely chronic. Ectasia of the ascending aorta measuring up to 39 mm. Diffuse atherosclerotic disease.
[2022-07-31] MEDS ORDERED: LR 15ML/HR IV SCH (06:00)
[2022-07-31] MEDS ORDERED: SODIUM CHLORIDE 0.9% 1000ML 1,000 ML IV SCH (06:00)
[2022-07-31] MEDS ORDERED: ceFAZolin 2000MG 2,000 MG/15 ML SYR IV SCH (06:00)
[2022-07-31 07:00] LABS: BUN Creatinine Ratio 27.3 (10-20); Calcium 9.3 mg/dl (8.5-10.1); Creatinine Clr Calc Pharmacy 39.5 ml/min; Est GFR (African American) 63.3 ml/min; Est GFR (Non-African American) 54.6 ml/min; Potassium 3.9 mmol/L (3.5-5.1)
[2022-07-31] MEDS ORDERED: fentaNYL citrate 100 MCG/2 ML VIAL ONE (07:06)
[2022-07-31] MEDS ORDERED: MIDAZOLAM HCL 1 MG/ML 2ML VIAL ONE (07:06)
--- NOTE | 2022-07-31 07:38 | History & Physical Report ---
Date of Service July 31, 2022 Assessment & Plan (1) AAA (abdominal aortic aneurysm) without rupture: Plan: Patient for a PEVAR of his AAA. I have discussed the risks options and benefits of the procedure with the patient. The patient understands the risks options and benefits and agrees to the procedure. History of Present Illness Chief Complaint: AAA Primary Care Provider: Denice Giles PA-C Mr. Aguilar is an elderly male who presents to Dr. Marsh's vascular surgery clinic today as a new patient in consultation for an infrarenal abdominal aortic aneurysm. Patient states he has known about his aneurysm for at least 10 to 12 years, and it has been checked on an annual or every 6-month basis for quite some time. He states that his physician was concerned because the ultrasound done recently had indicated significant growth since his last ultrasound 6 months prior, and that it was now over 5 cm in size. Patient admits a cold sensation in his bilateral feet which is chronic and intermittent. Patient denies any other significant problems at this time, including headache, fever, chest pain, shortness of breath, abdominal pain, nausea, vomiting, rest pain, claudication, nonhealing wounds or ulcers, other concerns. Allergies Allergy/AdvReac Type Severity Reaction Status Date / Time ezetimibe [From Zetia] AdvReac Mild Numbness Verified 07/31/22 06:14 Home Medications Medication Instructions Recorded Confirmed Type amlodipine 5 mg tablet 2.5 mg PO QAM 07/08/19 07/31/22 History ascorbic acid (vitamin C) 500 mg 500 mg PO BID 07/08/19 07/31/22 History tablet (Vitamin C) aspirin 81 mg tablet,delayed 81 mg PO QPM 07/08/19 07/31/22 History release carvedilol 6.25 mg tablet 3.125 mg PO BID 07/08/19 07/31/22 History clopidogrel 75 mg tablet 75 mg PO QAM 07/08/19 07/31/22 History dfzzmqflbphi-kjc-thaqq acid-vit 1 tab PO QAM 07/08/19 07/31/22 History K-lycop 400 mcg-20 mcg-370 mcg tablet (Men's 50 Plus Multivitamin) omega 3-uvi-wgt-fish oil 1,000 mg 1 cap PO QAM 07/08/19 07/31/22 History (120 mg-180 mg) capsule (Fish Oil) simvastatin 20 mg tablet 20 mg PO PM 07/08/19 07/31/22 History cyanocobalamin (vitamin B-12) 1,000 mcg PO UD 06/23/22 07/31/22 History 1,000 mcg tablet (Vitamin B-12) furosemide 20 mg tablet 20 mg PO QAM PRN water retention 06/23/22 07/31/22 History sacubitril 97 mg-valsartan 103 mg 1 tab PO BID 06/23/22 07/31/22 History tablet (Entresto) zinc 50 mg tablet 50 mg PO QAM 06/23/22 07/31/22 History levothyroxine 25 mcg tablet 25 mcg PO QAM 06/27/22 07/31/22 History (Euthyrox) cholecalciferol (vitamin D3) 25 25 mcg PO PM 07/21/22 07/31/22 History mcg (1,000 unit) tablet (Vitamin D3) ferrous sulfate 134 mg (27 mg 134 mg PO 5XWK 07/21/22 07/31/22 History iron) tablet Past Med/Surg History Medical History Aortic aneurysm CAD (coronary artery disease) s/p CABG x 3 (2011), stent x 1 (2009) Chronic systolic (congestive) heart failure GERD (gastroesophageal reflux disease) controlled Hearing deficit History of anesthesia reaction was told by staff after CABG surgery, kept trying to pull at ET tube in recovery. They had to put hands in restraints, resulted in carpal tunnel syndrome afterward per pt report Hyperlipidemia Hypertension Hypothyroidism Myocardial Infarction 2011- blockage found during cath- denies "[place]" Skin cancer BCC- excision Slow to wake up after anesthesia Happened after one procedure Surgical History History of cardiac cath Stent (2009), most recent cath (2018- no stents) History of carpal tunnel release RT/LEFT History of cataract surgery History of colonoscopy History of coronary artery bypass graft x3 (2011) History of esophagogastroduodenoscopy (EGD) History of tooth extraction Hx of angioplasty 2018 S/P removal of metal from eye Status post total hip replacement, right 2019 Family History Uncle Family history of diabetes mellitus Social History Smoking Status: Former smoker Smoking End Date: age 28; Second Hand Exposure: No; Do You Dip or Chew Tobacco: No; Tobacco Cessation Education Requested by Patient: No Hx Alcohol Use: No Hx Substance Use: No Preferred Language: Grenadian Communication Ability: Effective 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 He is alert and oriented without any focal deficits. His head is normocephalic and atraumatic. His neck is supple nontender with midline trachea. His carotids do not demonstrate a bruit. His heart is regular, his lungs are clear throughout. His abdomen is soft nontender with normoactive bowel sounds. He does have a pulsatile mass appreciable measuring about 5 cm in diameter. His brachial radial and femoral pulses are +3. His lower extremity distal pulses are +2. He has brisk capilla ry refill and no sign of distal ischemia. His toes are warm and pink. He has no significant edema Results & Data ([facility]) Vital Signs (Past 12 Hours) Vital Signs Temp Pulse Resp BP BP Pulse Ox O2 Del Method 07/31/22 06:19 36.6 C 63 20 123/76 130/73 96 Room Air
[2022-07-31] MEDS ORDERED: BUPIVACAINE/EPINEPHRINE 0.5% MPF 1:200,000 30 ML VIAL ONE (07:42)
[2022-07-31] MEDS ORDERED: ONDANSETRON INJ 2 MG/ML 2 ML VIAL ONE (08:37)
[2022-07-31] MEDS ORDERED: PROPOFOL IV EMULSION 10 MG/ML 20 ML VIAL IV ONE (08:37)
[2022-07-31] MEDS ORDERED: ePHEDrine sulfate 50 MG/ML SYR ONE (08:37)
[2022-07-31] MEDS ORDERED: LIDOCAINE 2% MPF LOCAL 5 ML VIAL INFIL ONE (08:37)
[2022-07-31] MEDS ORDERED: DEXAMETHASONE SOD INJ 4 MG/ML VIAL ONE (08:37)
[2022-07-31] MEDS ORDERED: ROCURONIUM BROMIDE 10 MG/ML 5 ML VIAL IV ONE (08:37)
[2022-07-31] MEDS ORDERED: fentaNYL citrate 100 MCG/2 ML VIAL IV PRN (08:49)
[2022-07-31] MEDS ORDERED: ONDANSETRON INJ 2 MG/ML 2 ML VIAL IV PRN ×2 (08:49→12:14)
[2022-07-31] MEDS ORDERED: HYDROmorphone INJ 1 MG/ML SYRINGE IV PRN (08:49)
[2022-07-31] MEDS ORDERED: ATROPINE SULFATE 0.1 MG/ML 10ML SYR IV PRN (08:49)
[2022-07-31] MEDS ORDERED: ePHEDrine sulfate 50 MG/ML AMP IV PRN (08:49)
[2022-07-31] MEDS ORDERED: HEPARIN SOD (PORCINE) 1000 UNIT/ML ONE (08:51)
[2022-07-31] MEDS ORDERED: GLYCOPYRROLATE 0.2 MG/ML VIAL ONE ×2 (09:03)
[2022-07-31] MEDS ORDERED: NEOSTIGMINE METHYLSULFATE 1 MG/ML 10ML VIAL ONE (09:03)
[2022-07-31] MEDS ORDERED: VISIPAQUE IV PRN (10:06)
--- NOTE | 2022-07-31 10:17 | Procedure Note ---
Angiogram Post Procedure Fluoroscopy Time (minutes): 20.7 Radiation (mGy): 431 Contrast: 129mL Post Operative Report Pre & Post Diagnosis Operation Date: 07/31/22 08:00 Pre-Op Diagnosis: Abdominal Aortic Aneurysm Post-Op Diagnosis: Abdominal Aortic Aneurysm I identified the patient and participated in the time-out.: Yes Procedure Operation Date: 07/31/22 08:00 Actual Procedures p Percutaneous Endovascular Aortic Aneurysm Repair, Right Iliac Extension, [facility] anical Closure of Bilateral Femoral Arteries (Bilateral) - Braxton Marsh MD Surgeon Braxton Marsh MD Traveling Plant Operator Marilia Barrett MD Estimated Blood Loss 30 Findings See Below No dissection noted. NO type 1 a or b or type 3 endoleak noted. Specimens none Anesthesia Type General Complications none Disposition Accompanied Patient To Recovery: No Disposition: Recovery Room Indications asymptomatic AAA greater than 5cm Description of Procedure Patient was brought to the operating room. A Surgical time out was performed which identified the patient, procedure, indication, and allergies. Then the anesthesia team induced general anesthesia and an ET tube was secured. The patient's bilateral groins were prepped and draped in standard sterile fashion. The ultrasound was prepped in sterile manner. Under ultrasound guidance the right SCHOOL PRINCIPAL and bifurcation was identified. The SCHOOL PRINCIPAL was accessed using an 18 gauze needle. A J wire was inserted and an 11 blade was used to make a skin kalen over the needle. The needle was exchanged for a 5Fr sheath. The dilator and J wire were removed and the sheath was flushed. Then over a J wire two Perclose devices were pre-closed and the stitches were secured to the drapes with steri-strips. Then an 8 Mauritian sheath was placed into the right femoral artery and flushed. Under ultrasound guidance the left SCHOOL PRINCIPAL and bifurcation was identified. The SCHOOL PRINCIPAL was accessed using an 18 gauze needle. A J wire was inserted and an 11 blade was used to make a skin kalen over the needle. The needle was exchanged for a 5Fr sheath. The dilator and J wire were removed and the sheath was flushed. Then over a J wire two Perclose devices were pre-closed and the stitches were secured to the drapes with steri-strips. Then an 8 Mauritian sheath was placed into the left femoral artery and flushed. On the right side over a 0.035 glide wire a Kumpe catheter was placed into the descending aorta. The glide wire was then exchanged for a Donovan wire. The 8 [place] sheath was first exchanged for a 16 Fr dilator and then an 18Fr 33cm Dryseal catheter was placed into the abdominal aorta. On the left side over an 0.035 glide wire a Kumpe catheter was place into the descending aorta. The glide wire was then exchanged for a Donovan wire. Then 8 [place] sheath was then exchanged for an 12Fr 33cm Dryseal catheter. The 32x14.5x14 main body was advanced into the 18Fr sheath on the right side. Then a pigtail catheter was placed into the abdominal aorta on the left side. An aortogram was taken which demonstrated patent celiac, SMA, and renal arteries. The main body was deployed below both main renal arteries. Then over a glide wire the pigtail catheter was removed on the left side and a Kumpe catheter was advanced. Using a combination of Kumpe and glide catheter was gate was cannulated. Then a marking pigtail catheter was inserted on the left side. An angiogram through the left sheath was performed to identify the iliac bifurcation. The internal iliac was patent Then the glide wire was exchange for a Donovan wire. The pigtail catheter was withdrawn and the dilator for the 12Fr sheath was inserted and the 12 Fr sheath was advanced into the main body of the device. Then the 16x14.5x10cm limb was inserted into the 12 Fr sheath and the sheath was pulled back. Limb was deployed after fully deploying the main body. An angiogram was performed via the right sheath to identify the iliac bifurcation. Then the [id number] limb was deployed. The a Q50 balloon was first used on the left side to balloon the proximal portion of the graft and the distal end of the iliac limb. Then the Q50 was used on the right side to balloon the gate portion of the graft and the right iliac system. Then a pigtail catheter was inserted on the left side and the Donovan wire withdrawn. Next completion angiograms were performed that demonstrated patent graft with patent bilateral integral iliac arteries. No type 1 a or b, or type III endoleak was noted. The pigtail catheter was removed over a glide wire. On the right side the Perclose devices fully deployed and the wire access was withdrawn. Then on the left Perclose devices were fully deployed and then wire access was withdrawn. Hemostasis was achieved and Lillie powder was placed in both in incisions. Sterile dressing were applied to both groins. The patient was awoken from anesthesia and taken to the PACU for recovery. Dr. Marsh was present and scrubbed for the entire procedure. I attest to the content of the Intraoperative Record and any orders documented therein. Any exceptions are noted below.
--- NOTE | 2022-07-31 10:20 | Post Operative Brief Note ---
Immediate Post Op Note v1 Date of Surgery July 31, 2022 Pre & Post Diagnosis Operation Date: 07/31/22 08:00 Pre-Op Diagnosis: Abdominal Aortic Aneurysm Post-Op Diagnosis: Abdominal Aortic Aneurysm I identified the patient and participated in the time-out.: Yes Procedure Operation Date: 07/31/22 08:00 Actual Procedures p Percutaneous Endovascular Aortic Aneurysm Repair, Right Iliac Extension, Mechanical Closure of Bilateral Femoral Arteries (Bilateral) - Braxton Marsh MD Surgeon Braxton Marsh MD Call Center Associate Marilia Barrett MD Estimated Blood Loss 30 Findings Consistent with Post-Op Diagnosis Drains [place] Catheter Anesthesia Type General Complications none Disposition Accompanied Patient To Recovery: No Disposition: Recovery Room
[2022-07-31 10:44] LABS: Hematocrit (blood only) 39.7 % (40.1-51.0); Hemoglobin 13.8 g/dl (14.0-18.0)
[2022-07-31] MEDS ORDERED: MoRPHine SULFATE 4 MG/ML 1 ML CARP\\VIAL IV PRN (12:14)
[2022-07-31] MEDS ORDERED: oxyCODONE/ACETAMINOPHEN 5mg/325mg TAB PO PRN (12:14)
[2022-07-31] MEDS ORDERED: FUROSEMIDE 20 MG TAB PO PRN (12:14)
--- NOTE | 2022-07-31 13:09 | Critical Care Consultation ---
Date of Consultation July 31, 2022 Assessment & Plan (1) AAA (abdominal aortic aneurysm) without rupture: (2) Chronic systolic (congestive) heart failure: (3) Hypothyroidism: (4) Hyperlipidemia: (5) Hypertension: (6) CAD (coronary artery disease): Plan 2D echo 06/30/2022: EF 30-35%, grade 1 diastolic dysfunction, PASP 25 mmHg -- Abdominal arctic aneurysm S/p PEVAR on 07/23/[address] Marsh To monitor pulses in the dorsalis pedis bilaterally Monitor H&H Pain management -- Systolic CHF Compensated Continue with beta-blockers, Entresto, amlodipine Currently patient's blood pressure is on the softer side. Gradually restart medication one by one --Hypertension with dyslipidemia Continue with simvastatin -- Hypothyroidism Continue with levothyroxine -- BPH -- Coronary disease S/p CABG 2011 --Prophylaxis VTE: None GI: None Lines: Right radial Diet: Cardiac Plan: Monitor in/out Monitor for signs of bleeding Resume diet once cleared by vascular surgery Given the blood pressure is on the softer side. Can resume blood pressure medication tomorrow on a gradual basis. Please note the above document was generated using voice recognition software. It may contain grammatical, syntax or spelling errors.Any formal questions or concerns about the content, text or information contained within the body of this dictation should be directly addressed to the provider for clarification. History of Present Illness Attending Physician: Braxton Marsh MD History of Present Illness 82-year-old male presented to the hospital for Pevar Past medical history: Abdominal aortic aneurysm, hypertension, hypothyroidism, dyslipidemia, systolic CHF Patient is in the ICU for post surgical management At the time of examination patient's map was in the high 60s to low 70s He denies any chest pain, no shortness of breath Did complain of mild abdominal discomfort No nausea vomiting Denies any cough. No headache, no blurry vision Was asking if he can have sips of water. History: 11-lcil-wdle smoking history quit at the age of 28 Allergies Allergy/AdvReac Type Severity Reaction Status Date / Time ezetimibe [From Zetia] AdvReac Mild Numbness Verified 07/31/22 06:14 Home Medications Medication Instructions Recorded Confirmed Type amlodipine 5 mg tablet 2.5 mg PO QAM 07/08/19 07/31/22 History ascorbic acid (vitamin C) 500 mg 500 mg PO BID 07/08/19 07/31/22 History tablet (Vitamin C) aspirin 81 mg tablet,delayed 81 mg PO QPM 07/08/19 07/31/22 History release carvedilol 6.25 mg tablet 3.125 mg PO BID 07/08/19 07/31/22 History clopidogrel 75 mg tablet 75 mg PO QAM 07/08/19 07/31/22 History ccpfkbixvugl-qcv-fojhw acid-vit 1 tab PO QAM 07/08/19 07/31/22 History K-lycop 400 mcg-20 mcg-370 mcg tablet (Men's 50 Plus Multivitamin) omega 4-zqd-knt-fish oil 1,000 mg 1 cap PO QAM 07/08/19 07/31/22 History (120 mg-180 mg) capsule (Fish Oil) simvastatin 20 mg tablet 20 mg PO PM 07/08/19 07/31/22 History cyanocobalamin (vitamin B-12) 1,000 mcg PO UD 06/23/22 07/31/22 History 1,000 mcg tablet (Vitamin B-12) furosemide 20 mg tablet 20 mg PO QAM PRN water retention 06/23/22 07/31/22 History sacubitril 97 mg-valsartan 103 mg 1 tab PO BID 06/23/22 07/31/22 History tablet (Entresto) zinc 50 mg tablet 50 mg PO QAM 06/23/22 07/31/22 History levothyroxine 25 mcg tablet 25 mcg PO QAM 06/27/22 07/31/22 History (Euthyrox) cholecalciferol (vitamin D3) 25 25 mcg PO PM 07/21/22 07/31/22 History mcg (1,000 unit) tablet (Vitamin D3) ferrous sulfate 134 mg (27 mg 134 mg PO 5XWK 07/21/22 07/31/22 History iron) tablet Patient History Medical History Aortic aneurysm CAD (coronary artery disease) s/p CABG x 3 (2011), stent x 1 (2009) Chronic systolic (congestive) heart failure GERD (gastroesophageal reflux disease) controlled Hearing deficit History of anesthesia reaction was told by staff after CABG surgery, kept trying to pull at ET tube in recovery. They had to put hands in restraints, resulted in carpal tunnel syndrome afterward per pt report Hyperlipidemia Hypertension Hypothyroidism Myocardial Infarction 2012- blockage found during cath- denies "[place]" Skin cancer BCC- excision Slow to wake up after anesthesia Happened after one procedure Surgical History History of cardiac cath Stent (2009), most recent cath (2018- no stents) History of carpal tunnel release RT/LEFT History of cataract surgery History of colonoscopy History of coronary artery bypass graft x3 (2011) History of esophagogastroduodenoscopy (EGD) History of tooth extraction Hx of angioplasty 2018 S/P removal of metal from eye Status post total hip replacement, right 2019 Family History Uncle Family history of diabetes mellitus Social History Smoking Status: Former smoker Smoking End Date: age 28; Second Hand Exposure: No; Do You Dip or Chew Tobacco: No; Tobacco Cessation Education Requested by Patient: No Hx Alcohol Use: No Hx Substance Use: No Preferred Language: Mongolian Communication Ability: Effective Environmental Assistant Required: No Beliefs That Will Affect Care: None marital status: Current Living Situation: Alone Other Information That Helps Us Care for You: No Feels Safe at Home: Yes Safety Concerns: Feels Safe At This Time Assistive Devices: None Review of Systems Review of Systems: All systems reviewed & are unremarkable except as noted in HPI & below Physical Exam Physical Exam: Constitutional: No acute distress HEENT: EOMI, PERRLA, hard to hear Respiratory system: Good air entry bilaterally, no wheeze, rhonchi, positive cr ackles bilateral lower lobes CVS: S1-S2 positive, no murmurs or gallops Abdomen: Soft, nontender, nondistended, positive bowel sounds x4 Extremities: +2 pulses bilaterally radialis/ dorsalis pedis, no cyanosis, no edema Neuro: Awake alert oriented x3 Psych: Normal mood and affect G/U: Positive [place] Skin: no rashes, warm and dry Lymphatic: no cervical or axillary lymphadenopathy Results & Data Results & Data ([facility]) Vital Signs (Past 12 Hours) Vital Signs Temp Pulse Pulse Resp BP BP BP 07/31/22 11:59 36.5 C 67 17 105/60 07/31/22 11:15 36.6 C 62 17 91/50 L 07/31/22 11:05 64 21 93/41 L 07/31/22 10:55 66 17 94/42 L 93/56 L 07/31/22 11:35 63 22 100/58 L 99/44 L 07/31/22 11:25 36.6 C 65 15 96/45 L 07/31/22 10:45 68 13 94/67 L 07/31/22 10:35 69 19 108/68 95/33 L 07/31/22 10:29 36.4 C L 73 24 114/69 07/31/22 06:19 36.6 C 63 20 123/76 130/73 Pulse Ox O2 Del Method O2 Flow Rate 07/31/22 11:59 95 Nasal Cannula 2 07/31/22 11:15 94 Nasal Cannula 2 07/31/22 11:05 94 Oxymask 2 07/31/22 10:55 99 Oxymask 4 07/31/22 11:35 93 Nasal Cannula 2 07/31/22 11:25 94 Nasal Cannula 2 07/31/22 10:45 99 Oxymask 4 07/31/22 10:35 98 Oxymask 6 07/31/22 10:29 97 Oxymask 6 07/31/22 06:19 96 Room Air Laboratory Results 07/31/22 10:32 07/31/22 06:11 Coding Level of Care Code 74637 Inpt Consult Level 4 Diagnoses AAA (abdominal aortic aneurysm) without rupture I71.40 Chronic systolic (congestive) heart failure I50.22 Hypothyroidism E03.9 Hyperlipidemia E78.5 Hypertension I10 CAD (coronary artery disease) I25.10
--- NOTE | 2022-07-31 13:21 | Anesthesiology Progress Note ---
Date of Service July 31, 2022 Anesthesia Post Procedure Vital Signs Vital Signs: Temp Pulse Pulse Resp BP BP BP 07/31/22 11:59 36.5 C 67 17 105/60 07/31/22 11:15 36.6 C 62 17 91/50 L 07/31/22 11:05 64 21 93/41 L 07/31/22 10:55 66 17 94/42 L 93/56 L 07/31/22 11:35 63 22 100/58 L 99/44 L 07/31/22 11:25 36.6 C 65 15 96/45 L 07/31/22 10:45 68 13 94/67 L 07/31/22 10:35 69 19 108/68 95/33 L 07/31/22 10:29 36.4 C L 73 24 114/69 07/31/22 06:19 36.6 C 63 20 123/76 130/73 Pulse Ox O2 Del Method O2 Flow Rate 07/31/22 11:59 95 Nasal Cannula 2 07/31/22 11:15 94 Nasal Cannula 2 07/31/22 11:05 94 Oxymask 2 07/31/22 10:55 99 Oxymask 4 07/31/22 11:35 93 Nasal Cannula 2 07/31/22 11:25 94 Nasal Cannula 2 07/31/22 10:45 99 Oxymask 4 07/31/22 10:35 98 Oxymask 6 07/31/22 10:29 97 Oxymask 6 07/31/22 06:19 96 Room Air Transfer of Care Handoff Completed per policy Notes Mental Status: alert / awake / arousable and participated in evaluation Patient Amnestic to Procedure: Yes Nausea / Vomiting: adequately controlled Pain: adequately controlled Airway Patency, RR, SpO2: stable & adequate BP & HR: stable & adequate Hydration State: stable & adequate Anesthetic Complications: no major complications apparent and Pt Satisfied with anesthetic care
[2022-07-31] MEDS: D5W AND 1/2NSS 1,000 ML IV SCH ×2 (14:02→22:04)
[2022-07-31] MEDS: ceFAZolin 2000MG 2,000 MG/15 ML SYR IV SCH ×2 (18:35→23:13)
[2022-07-31] MEDS: carvediloL 3.125 MG TAB PO SCH (20:17)
[2022-07-31] MEDS: ASCORBIC ACID 500 MG TAB PO SCH (20:58)
[2022-07-31] MEDS: VALSARTAN/SACUBITRIL 103/97MG TAB PO SCH (20:59)
[2022-07-31] MEDS ORDERED: CHOLECALCIFEROL 1,000 UNITS 25 MCG TAB PO SCH (21:00)
[2022-07-31] MEDS ORDERED: SIMVASTATIN 20 MG TAB PO SCH (21:00)
[2022-07-31] MEDS ORDERED: ASPIRIN 81 MG ECTAB PO SCH (21:00)
[2022-08-01 04:43] LABS: Basophils # (auto) 0.01 K/uL (0-0.2); Basophils % (auto) 0.1 %; Hematocrit (blood only) 37.8 % (40.1-51.0); Hemoglobin 13.2 g/dl (14.0-18.0); Immature Granulocytes # (auto) 0.09 K/uL (0.00-0.02); Immature Granulocytes % (auto) 0.6 %; Lymphocytes % (auto) 7.2 %; Mean Corpuscular Hgb Conc 34.9 g/dL (32.0-36.0); Mean Corpuscular Volume 94.5 fL (80.0-100.0); Mean Platelet Volume 10.7 fL (9.4-12.4); Monocytes # (auto) 1.41 K/uL (0.24-0.82); Monocytes % (auto) 10.1 %; Neutrophils # (auto) 11.46 K/uL (1.4-6.5); Platelet Count 167 K/uL (130-400); RDW Coefficient of Variation 14.3 % (11.5-14.5); RDW Standard Deviation 49.5 fL (36.4-46.3); White Blood Count 13.97 K/ul (4.8-10.8)
[2022-08-01 05:39] LABS: BUN Creatinine Ratio 20.3 (10-20); Calcium 8.4 mg/dl (8.5-10.1); Creatinine Clr Calc Pharmacy 34.7 ml/min; Est GFR (Non-African American) 46.6 ml/min; Potassium 4.1 mmol/L (3.5-5.1)
[2022-08-01] MEDS ORDERED: LEVOTHYROXINE SODIUM 25 MCG TABLET PO SCH (06:30)
--- NOTE | 2022-08-01 07:40 | Surgery Progress Note ---
Date of Service August 01, 2022 Assessment & Plan (1) AAA (abdominal aortic aneurysm) without rupture: Plan: Patient doing well. Will d/c today. Admission and Anticipated Discharge Date Admission Date: July 31, 2022 Subjective Patient sitting in chair. No complaints. No pain in groins or pain Physical Exam Constitutional: WD/WN, vitals as above Respiratory: normal respiratory effort; no respiratory distress Cardiovascular: RRR, no murmur, no edema Vessels: normal peripheral pulses Extremities: normal capillary refill Gastrointestinal (Abdomen): Inspection/Auscultation: abdomen normal to inspection; abdomen not distended Percussion/Palpation: abdomen soft; abdomen nontender Musculoskeletal: Extremities: extremities normal to inspection Neurologic: CN's II-XI intact bilaterally and moves all extremities Psychiatric: Orientation: alert and oriented x 3 Results & Data ([facility]) Vital Signs (Past 12 Hours) Vital Signs Temp Pulse Pulse Resp BP Pulse Ox 08/01/22 06:30 69 21 93 08/01/22 06:20 65 20 96 08/01/22 06:10 80 28 H 95 08/01/22 06:00 67 19 94 08/01/22 06:00 107/61 08/01/22 05:50 83 19 93 08/01/22 05:00 80 24 95 08/01/22 05:00 114/66 08/01/22 04:50 77 16 95 08/01/22 04:40 76 16 95 08/01/22 04:30 77 15 96 08/01/22 04:20 86 22 92 08/01/22 04:00 75 22 93 08/01/22 04:00 36.6 C 95/59 L 08/01/22 03:20 70 19 91 08/01/22 03:10 75 22 94 08/01/22 03:00 69 22 93 08/01/22 03:00 111/64 08/01/22 02:40 66 23 92 08/01/22 02:10 68 20 90 08/01/22 03:00 66 08/01/22 02:00 68 16 91 08/01/22 02:00 91/54 L 08/01/22 01:00 74 12 92 08/01/22 01:00 101/59 L 08/01/22 00:00 76 23 91 08/01/22 00:00 94/57 L 08/01/22 00:00 77 07/31/22 23:00 70 07/31/22 23:00 78 24 95 07/31/22 23:00 36.7 C 111/73 07/31/22 22:00 72 15 95 07/31/22 22:00 96/60 L 07/31/22 21:00 76 20 94 07/31/22 21:00 102/60 07/31/22 20:00 68 14 92 07/31/22 20:00 99/70 L
[2022-08-01] MEDS ORDERED: CLOPIDOGREL BISULFATE 75 MG TAB PO SCH (09:00)
[2022-08-01] MEDS ORDERED: CYANOCOBALAMIN (B-12) 500 MCG TABLET PO SCH (09:00)
[2022-08-01] MEDS ORDERED: amLODIPine BESYLATE 5 MG TAB PO SCH (09:00)
[2022-08-01] MEDS ORDERED: ZINC SULFATE 220 MG CAPSULE PO SCH (09:00)
[2022-08-01] MEDS ORDERED: MULTIVITAMIN TAB PO SCH (09:00)
--- NOTE | 2022-08-01 09:32 | Critical Care Progress Note ---
Date of Service August 01, 2022 Assessment & Plan (1) AAA (abdominal aortic aneurysm) without rupture: (2) Chronic systolic (congestive) heart failure: (3) Hypothyroidism: (4) Hyperlipidemia: (5) Hypertension: (6) CAD (coronary artery disease): Plan 2D echo 06/30/2022: EF 30-35%, grade 1 diastolic dysfunction, PASP 25 mmHg -- Abdominal arctic aneurysm S/p PEVAR on 07/23/[address] Marsh To monitor pulses in the dorsalis pedis bilaterally Monitor H&H Pain management -- Systolic CHF Compensated Continue with beta-blockers, Entresto, amlodipine Currently patient's blood pressure is on the softer side. Gradually restart medication one by one --Hypertension with dyslipidemia Continue with simvastatin -- Hypothyroidism Continue with levothyroxine -- BPH -- Coronary disease S/p CABG 2011 --Prophylaxis VTE: None GI: None Lines: Peripheral Diet: Cardiac Plan: In/out: +1.3 L, urine output 1530 Labs within normal limit. Patient hemodynamically stable Blood pressure medications have been resumed today. Disposition as per vascular surgery Please note the above document was generated using voice recognition software. It may contain grammatical, syntax or spelling errors.Any formal questions or concerns about the content, text or information contained within the body of this dictation should be directly addressed to the provider for clarification. Admission and Anticipated Discharge Date Admission Date: July 31, 2022 Subjective Patient seen and examined at bedside. No acute distress, no adverse events overnight. Denies any headache, no nausea vomiting Denies any shortness of breath, no chest pain Denies any abdominal pain Urinating well Review of Systems Review of Systems: All systems reviewed & are unremarkable except as noted in Subjective Physical Exam Physical Exam: Constitutional: No acute distress HEENT: EOMI, PERRLA, hard to hear Respiratory system: Good air entry bilaterally, no wheeze, rhonchi, mild crackles bilateral lower lobes CVS: S1-S2 positive, no murmurs or gallops Abdomen: Soft, nontender, nondistended, positive bowel sounds x4 Extremities: +2 pulses bilaterally radialis/ dorsalis pedis, no cyanosis, no edema Neuro: Awake alert oriented x3 Psych: Normal mood and affect G/U: No [place] Bilateral groin dressing in place with no hematoma around it. Skin: no rashes, warm and dry Lymphatic: no cervical or axillary lymphadenopathy Results & Data Results & Data ([facility]) Vital Signs (Past 12 Hours) Vital Signs Temp Pulse Pulse Resp BP Pulse Ox 08/01/22 06:30 69 21 93 08/01/22 06:20 65 20 96 08/01/22 06:10 80 28 H 95 08/01/22 06:00 67 19 94 08/01/22 06:00 107/61 08/01/22 05:50 83 19 93 08/01/22 05:00 80 24 95 08/01/22 05:00 114/66 08/01/22 04:50 77 16 95 08/01/22 04:40 76 16 95 08/01/22 04:30 77 15 96 08/01/22 04:20 86 22 92 08/01/22 04:00 75 22 93 08/01/22 04:00 36.6 C 95/59 L 08/01/22 03:20 70 19 91 08/01/22 03:10 75 22 94 08/01/22 03:00 69 22 93 08/01/22 03:00 111/64 08/01/22 02:40 66 23 92 08/01/22 02:10 68 20 90 08/01/22 03:00 66 08/01/22 02:00 68 16 91 08/01/22 02:00 91/54 L 08/01/22 01:00 74 12 92 08/01/22 01:00 101/59 L 08/01/22 00:00 76 23 91 08/01/22 00:00 94/57 L 08/01/22 00:00 77 07/31/22 23:00 70 07/31/22 23:00 78 24 95 07/31/22 23:00 36.7 C 111/73 07/31/22 22:00 72 15 95 07/31/22 22:00 96/60 L Laboratory Results 08/01/22 04:15 08/01/22 04:15 Coding Level of Care Code 96269 Subseq Hosp Care Lvl 2 Diagnoses AAA (abdominal aortic aneurysm) without rupture I71.40 Chronic systolic (congestive) heart failure I50.22 Hypothyroidism E03.9 Hyperlipidemia E78.5 Hypertension I10 CAD (coronary artery disease) I25.10
[2022-08-01] MEDS: carvediloL 3.125 MG TAB PO SCH (10:00)
[2022-08-01] MEDS: OMEGA-3 (PURIFIED FISH OIL) 1 GM CAP PO SCH ×2 (10:01→10:31)
[2022-08-01] MEDS: VALSARTAN/SACUBITRIL 103/97MG TAB PO SCH (10:03)
[2022-08-01] MEDS: ASCORBIC ACID 500 MG TAB PO SCH (10:03)
[2022-08-02] MEDS ORDERED: FERROUS SULFATE 325 MG TAB PO SCH (09:00)
--- NOTE | 2022-08-07 12:08 | Discharge Summary ---
Date of Service August 07, 2022 Admission HPI Per Admitting Provider Mr. Aguilar is an elderly male who presents to Dr. Marsh's vascular surgery clinic today as a new patient in consultation for an infrarenal abdominal aortic aneurysm. Patient states he has known about his aneurysm for at least 10 to 12 years, and it has been checked on an annual or every 6-month basis for quite some time. He states that his physician was concerned because the ultrasound done recently had indicated significant growth since his last ultrasound 6 months prior, and that it was now over 5 cm in size. Patient admits a cold sensation in his bilateral feet which is chronic and intermittent. Patient denies any other significant problems at this time, including headache, fever, chest pain, shortness of breath, abdominal pain, nausea, vomiting, rest pain, claudication, nonhealing wounds or ulcers, other concerns. Admission Exam Per Admitting Provider Constitutional: In general patient is a healthy-appearing well-nourished well- developed elderly male no distress. He is alert and oriented without any focal deficits. His head is normocephalic and atraumatic. His neck is supple nontender with midline trachea. His carotids do not demonstrate a bruit. His heart is regular, his lungs are clear throughout. His abdomen is soft nontender with normoactive bowel sounds. He does have a pulsatile mass appreciable m easuring about 5 cm in diameter. His brachial radial and femoral pulses are +3. His lower extremity distal pulses are +2. He has brisk capillary refill and no sign of distal ischemia. His toes are warm and pink. He has no significant edema Principal Diagnosis Abdominal aortic aneurysm Discharge Exam Constitutional: In general patient is a healthy-appearing well-nourished well- developed elderly male no distress. He is alert and oriented without any focal deficits. His head is normocephalic and atraumatic. His neck is supple nontender with midline trachea. His carotids do not demonstrate a bruit. His heart is regular, his lungs are clear throughout. His abdomen is soft nontender with normoactive bowel sounds. He does have a pulsatile mass appreciable measuring about 5 cm in diameter. His brachial radial and femoral pulses are +3. His lower extremity distal pulses are +2. He has brisk capillary refill and no sign of distal ischemia. His toes are warm and pink. He has no significant edema Constitutional WD/WN, vitals as above Respiratory normal respiratory effort; no respiratory distress Cardiovascular RRR, no murmur, no edema Vessels: normal peripheral pulses Extremities: normal capillary refill Gastrointestinal (Abdomen) Inspection/Auscultation: abdomen normal to inspection; abdomen not distended Percussion/Palpation: abdomen soft; abdomen nontender Musculoskeletal Extremities: extremities normal to inspection Neurologic CN's II-XI intact bilaterally and moves all extremities Psychiatric Orientation: alert and oriented x 3 Discharge Data Allergies Allergy/AdvReac Type Severity Reaction Status Date / Time ezetimibe [From Zetia] AdvReac Mild Numbness Verified 07/31/22 06:14 Consultations 07/31/22 12:14 Consult Business Director Routine Procedures Performed Operation Date: 07/31/22 08:00 Actual Procedures p Percutaneous Endovascular Aortic Aneurysm Repair, Right Iliac Extension, Mechanical Closure of Bilateral Femoral Arteries (Bilateral) - Braxton Marsh MD Ordered Studies 07/31/22 07:22 EV Angio Abdomen Aorta Routine US EV guide vascular access Routine Hospital Course (1) AAA (abdominal aortic aneurysm) without rupture: Patient doing well. Will d/c today. Total Time Total Time Spent Total Time Spent (In Minutes): 0 Discharge Plan Discharge Items Patient Disposition: Home - Self-Care Reason For Visit: Abdominal Aortic Aneurysm Discharge Diagnosis: Abdominal Aortic Aneurysm, percutaneous repair of aneurysm Activity: Per Instructions section Non-emergency contact: Surgeon Call non-emergency contact if: your temperature is above 101.5, your wound has increased redness, your wound has increased drainage and your wound pain has increased Follow-up/Referrals: Denice Giles PA-C [Primary Care Provider] - 08/03/22 10:30 am (at the [facility] office with Dr. Almendarez) Diet: Heart Healthy Addtl Attending Provider Instructions: SPECIAL CARE INSTRUCTIONS: Medications: * Continue to take your medications as directed. Incision/Puncture Site Care: * You will have an incision or puncture in each of your groins. Liquid glue will be used to seal your incisions/puncture site. This will lift off as the incisions/puncture sites heal. * If Liquid glue is not used, there will be small dressings covering your incisions. After you get home, you may remove the dressings and shower - allowing the warm soapy water to run over it. * Be sure to dry the sites well and keep them dry. * DO NOT SOAK IN A TUB/POOL/etc. UNTIL ALL SURGICAL SITES ARE HEALED. DO NOT REMOVE THE GLUE UNTIL THE INCISIONS HEAL. Restrictions: * Limit yourself to line service technician activity for the first week. * You may walk and go up and down steps. * Avoid excessive bending or movement at the level of the incisions or punctures. Risks and Possible Complications: * Infection/Drainage/Bleeding - Drainage or bleeding from the incisions/puncture site should be minimal. If you have excessive bleeding or drainage, call our office ([phone]) right away. * Pain/Numbness - You may experience some mild pain or soreness at your incision sites. You may also have some numbness around the incisions or into the insides of your thighs. Bruising is normal and should resolve within 2 weeks. * Changes in Appetite or Bowel Habits - Mostly related to anesthesia and pain medication, some patients have reported decreased appetite and/or problems with constipation. These symptoms usually improve over a few weeks. Remembering to take an [id number] stool softener, as directed, will help you to avoid constipation. Call our office and seek emergent treatment if you develop: * Fever or chills * Have a temperature greater than 101 degrees F * Any redness or purulent drainage from your incisions or punctures * Severe abdominal, chest or back pain SKIN IRRITATION: * You may experience some redness and/or swelling in the area where radiation was administered. If any skin irritation occurs, please contact your family physician. You will be receiving a call from the Vascular Surgery Nurse after you are discharged. FOLLOW UP VISIT: It is important for you to keep your follow up appointments with your medical provider. Keep any scheduled doctor appointments. Call [phone] to schedule a follow up appointment if one not already scheduled. Pending Studies at Discharge: No Stand-Alone Forms: My [employer], Smoking Cessation Medications and DC Order Prescriptions: New oxycodone-acetaminophen [Percocet] 5-325 mg tablet 1 tab PO Q8H PRN (Reason: pain) Qty: 7 0RF Continued carvedilol 6.25 mg Tablet 3.125 mg PO BID clopidogrel 75 mg Tablet 75 mg PO QAM amlodipine 5 mg Tablet 2.5 mg PO QAM ascorbic acid (vitamin C) [Vitamin C] 500 mg Tablet 500 mg PO BID omega [id number]-fish oil [Fish Oil] 1,000 mg (120 mg-180 mg) Capsule 1 cap PO QAM Men's 50 Plus Multivitamin 400-20-370 mcg Tablet 1 tab PO QAM aspirin 81 mg Tablet,Delayed Release (Dr/Ec) 81 mg PO QPM simvastatin 20 mg Tablet 20 mg PO PM cyanocobalamin (vitamin B-12) [Vitamin B-12] 1,000 mcg Tablet 1,000 mcg PO UD Rx Instructions: tuesdays and fridays furosemide 20 mg Tablet 20 mg PO QAM PRN (Reason: water retention) zinc 50 mg Tablet 50 mg PO QAM Entresto 97-103 mg Tablet 1 tab PO BID levothyroxine [Euthyrox] 25 mcg Tablet 25 mcg PO QAM ferrous sulfate 134 mg (27 mg iron) Tablet 134 mg PO 5XWK cholecalciferol (vitamin D3) [Vitamin D3] 25 mcg (1,000 unit) Tablet 25 mcg PO PM Discharge Orders: Discharge Order (Routine); Ordered 08/01/22 Ordered By: Braxton Marsh Admission Data Admit Date/Time: 07/31/22 07:38 Attending Provider: Braxton Marsh Admit Provider: Braxton Marsh Primary Care Provider: Denice Giles Other Providers: Bill Jara Other Interventions: Discharge Summary Assessment (RN) Last Done: 08/01/22 09:51
== END 2022-08-01 11:12 | disposition home or self-care (01) | DRG 269 ==
LOC: ASU 05:42 → 1E 07:38